=== PATIENT | female | born 1965 | race Caucasian/White ===

== ENCOUNTER → 2016-07-28 | Outpatient (CLI) | payer OTHER | LOC: WI 11:11 | PROVIDERS: ATTEND Physician Assistant | DX: Z12.31 Encounter for screening mammogram for malignant neoplasm of breast (principal) | CPT/HCPCS: 77067; G0202 ==

== ENCOUNTER 2017-10-25 16:15 | Emergency (ER) | payer OTHER ==
[2017-10-25] MEDS ORDERED: NORMAL SALINE 1000 ML 1,000 ML IV ONE (16:32)
[2017-10-25] MEDS ORDERED: DIPHENHYDRAMINE HCL 50 MG/ML VIAL IV ONE (16:32)
[2017-10-25] MEDS ORDERED: PROCHLORPERAZINE EDISYLATE INJ 10 MG/2 ML VIAL IV ONE (16:32)
--- NOTE | 2017-10-25 16:34 | ER Document Report ---
ED Headache - General Chief Complaint: Headache Stated Complaint: HEADACHE Time Seen by Provider: 10/25/17 16:23 Mode of Arrival: Ambulatory Information source: Patient Notes: Patient presents complaining of occipital headache that started 4 days ago. Patient states pain started and then gradually continue to worsen over the past 4 days. Patient denies any fever or head injury. Patient does report photo sensitivity as well as nausea. Patient states she typically gets headaches each month that coincide around her menstrual cycle, and states that this is typically when she does get headaches. Patient states that typically she will get right-sided migraines versus occipital headache pain. Patient denies any personal or family history of aneurysm. TRAVEL OUTSIDE OF THE [place] IN LAST 30 DAYS: No - HPI Patient complains to provider of: "Migraine" Patient reports: Frequent migraines Onset: Other - 4 days Onset was: Gradual Quality of pain: Achy Pain Level: 5 Associated symptoms: Nausea/vomiting, Photophobia. denies: Chills, Confusion, Double/blurred vision, Fever, Neck pain Exacerbated by: Light Similar symptoms previously: Yes Recently seen / treated by doctor: No - Related Data Allergies/Adverse Reactions: No Known Allergies Allergy (Unverified 04/26/11 22:23) Past Medical History - General Information source: Patient - Social History Smoking Status: Never Smoker Chew tobacco use (# tins/day): No Frequency of alcohol use: None Drug Abuse: None Occupation: None Lives with: Family Family History: Reviewed & Not Pertinent Patient has suicidal ideation: No Patient has homicidal ideation: No Neurological Medical History: Reports: Hx Migraine Renal/ Medical History: Denies: Hx Peritoneal Dialysis Psychiatric Medical History: Reports: Hx Anxiety Past Surgical History: Reports: Hx Adenoidectomy - Immunizations Hx Diphtheria, Pertussis, Tetanus Vaccination: Yes Review of Systems - Review of Systems Constitutional: No symptoms reported. denies: Fever EENT: No symptoms reported. denies: Blurred vision Cardiovascular: No symptoms reported Respiratory: No symptoms reported. denies: Cough Gastrointestinal: Nausea. denies: Vomiting Genitourinary: No symptoms reported Female Genitourinary: No symptoms reported Musculoskeletal: No symptoms reported. denies: Back pain, Neck pain Skin: No symptoms reported. denies: Rash Hematologic/Lymphatic: No symptoms reported Neurological/Psychological: Headaches. denies: Confusion, Weakness Physical Exam - Vital signs Vitals: Temp Pulse Resp BP Pulse Ox 97.8 F 82 20 145/86 H 100 10/25/17 16:19 10/25/17 16:19 10/25/17 16:19 10/25/17 16:19 10/25/17 16:19 - General General appearance: Appears well, Alert In distress: None - HEENT Head: Normocephalic, Atraumatic Eyes: Normal Conjunctiva: Normal Extraocular movements intact: Yes Eyelashes: Normal Pupils: PERRL Corrective lenses worn: No Ears: Normal External canal: Normal Tympanic membrane: Normal Sinus: Normal. No: Tenderness Nasal: Clear rhinorrhea Mouth/Lips: Normal Mucous membranes: Normal Pharynx: Normal. No: Erythema, Exudate Neck: Normal, Supple. No: Brudzinski, Lymphadenopathy, Meningismus - Respiratory Respiratory status: No respiratory distress Chest status: Nontender Breath sounds: Normal. No: Rales, Rhonchi, Stridor, Wheezing Chest palpation: Normal - Cardiovascular Rhythm: Regular Heart sounds: S1 appreciated, S2 appreciated Murmur: No - Back Back: Normal, Nontender. No: Vertebra tenderness - Extremities General upper extremity: Normal inspection, Normal ROM General lower extremity: Normal inspection, Normal ROM - Neurological Neuro grossly intact: Yes Cognition: Normal Orientation: AAOx4 Suzi Coma Scale Eye Opening: Spontaneous Friendly Coma Scale Verbal: Oriented Friendly Coma Scale Motor: Obeys Commands Suzi Coma Scale Total: 15 Speech: Normal. No: Dysarthria Cranial nerves: Normal. No: Facial palsy, Gaze palsy, Tongue deviation Cerebellar coordination: Normal, Finger-nose rhombey, Rapid alt. movements, Truncal ataxia Motor strength normal: LUE, RUE, LLE - Psychological Associated symptoms: Tearful - Skin Skin Temperature: Warm Skin Moisture: Dry Skin Color: Normal Course - Re-evaluation Re-evalutation: 10/25/17 17:18 Patient reports only modest improvement of headache pain at this time. Additional medication ordered. 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 The patient is neurologically intact. Given the extremely low risk of these diagnoses further testing and evaluation for these possibilities does not appear to be indicated at this time. The patient has been instructed to return if the symptoms worsen or change in any way. - Vital Signs Vital signs: Temp Pulse Resp BP Pulse Ox 98.2 F 71 20 127/69 H 97 10/25/17 19:43 10/25/17 19:43 10/25/17 16:19 10/25/17 19:43 10/25/17 19:43 Discharge - Discharge Clinical Impression: Headache Qualifiers: Headache type: unspecified Headache chronicity pattern: unspecified pattern Intractability: not intractable Qualified Code(s): R51 - Headache Condition: Stable Disposition: HOME, SELF-CARE Instructions: Intravenous Compazine for Headaches ([facility]), Use of Diphenhydramine , Headache ([facility]), Pain Medication Injection ([facility]), Toradol Injection ([facility]) Additional Instructions: Return immediately for any new or worsening symptoms Followup with your primary care provider, call tomorrow to make a followup appointment Follow-up with a neurologist for further evaluation of your migraine headaches Prescriptions: Butalb/Acetaminophen/Caffeine [Fioricet (50-325-40 mg) Tablet] 1 - 2 tab PO Q4H #20 each Referrals: MICHELET AGUAYO PA-C [Primary Care Provider] - Follow up as needed JAQUELINE BARBER MD [NO LOCAL MD] - Follow up in 3-5 days
[2017-10-25] MEDS ORDERED: KETOROLAC TROMETHAMINE INJ/PF 30 MG/1 ML SDV IV ONE (17:18)
[2017-10-25] MEDS ORDERED: DEXAMETHASONE SOD PHOS INJ 10 MG/1 ML VIAL IV ONE (17:18)
[2017-10-25] MEDS ORDERED: FENTANYL CITRATE INJ/PF 100 MCG/2 ML AMPUL IV ONE (18:14)
[2017-10-25 19:46] VITALS: BP 127/69
== END 2017-10-25 19:48 | disposition home or self-care (01) ==
LOC: ER 16:15
DX: R51 Headache (principal); H53.149 Visual discomfort, unspecified; R11.0 Nausea; J34.89 Other specified disorders of nose and nasal sinuses
CPT/HCPCS: 99284; 96361; 96374; 96375; J1200; J3010; J1885; J0780; J7030; J1100

== ENCOUNTER 2018-03-22 07:13 | Emergency (ER) | payer OTHER ==
[2018-03-22] MEDS ORDERED: DIPHENHYDRAMINE HCL 50 MG/ML VIAL IV ONE (07:35)
[2018-03-22] MEDS ORDERED: NORMAL SALINE 1000 ML 1,000 ML IV ONE (07:36)
[2018-03-22] MEDS ORDERED: PROCHLORPERAZINE EDISYLATE INJ 10 MG/2 ML VIAL IV ONE (07:36)
[2018-03-22] MEDS ORDERED: ONDANSETRON HCL INJ/PF 4 MG/2 ML SDV IV ONE (07:37)
--- NOTE | 2018-03-22 07:44 | ER Document Report ---
ED General - General Chief Complaint: Headache >24 hrs old Stated Complaint: HEADACHE Time Seen by Provider: 03/22/18 07:26 Mode of Arrival: Ambulatory Information source: Patient Notes: Patient presents emergency department with complaints of migraine headache. Patient reports her usual migraine is frontal. This time its in the back of her head occipital. She reports she has had this migraine before in October. She reports that she was having a little bit of pain before she went to bed and woke up in excruciating pain. She took Motrin before she went to bed and at 530 this morning. This did not help her pain. She reports noise makes it feel worse. She reports it is its as if somebody is sitting on the back of her head. Denies trauma. Her is with her and reports patient is acting normal no confusion. Denies fever vomiting diarrhea reports some nausea. TRAVEL OUTSIDE OF THE [place] 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 Lives with: Family Family History: Reviewed & Not Pertinent Patient has suicidal ideation: No Patient has homicidal ideation: No Neurological Medical History: Reports: Hx Migraine Renal/ Medical History: Denies: Hx Peritoneal Dialysis Psychiatric Medical History: Reports: Hx Anxiety Past Surgical History: Reports: Hx Adenoidectomy - Immunizations Hx Diphtheria, Pertussis, Tetanus Vaccination: Yes Review of Systems - Review of Systems Notes: Review HPI for review of systems., All other systems negative Physical Exam - Vital signs Vitals: Temp Pulse Resp BP Pulse Ox 98 F 73 18 140/73 H 99 03/22/18 07:19 03/22/18 07:19 03/22/18 07:19 03/22/18 07:19 03/22/18 07:19 - General General appearance: Alert, Anxious, Other - tearful - HEENT Head: Normocephalic, Other - c/o bilateral tenderness to occipital area Eyes: Normal Conjunctiva: Normal Extraocular movements intact: Yes Eyelashes: Normal Pupils: PERRL Ears: Normal External canal: Normal Tympanic membrane: Normal Nasal: Normal Mouth/Lips: Normal Mucous membranes: Moist Pharynx: Normal Neck: Normal, Supple, Other - CHIN TO CHEST WITHOUT C/O PAIN. No: Lymphadenopathy - Respiratory Respiratory status: No respiratory distress - Cardiovascular Rhythm: Regular Heart sounds: Normal auscultation - Abdominal Inspection: Normal Distension: No distension Tenderness: Nontender - Extremities General upper extremity: Normal ROM, Normal strength General lower extremity: Normal ROM - Neurological Neuro grossly intact: Yes Cognition: Normal Orientation: AAOx4 Suzi Coma Scale Eye Opening: Spontaneous [place] Coma Scale Verbal: Oriented Suzi Coma Scale Motor: Obeys Commands [place] Coma Scale Total: 15 Speech: Normal Cranial nerves: Normal Motor strength normal: LUE, RUE 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 No obvious neuro deficits no trauma. Will treat patient accordingly. Patient mentions that the last time she was here only the third medication helped her. Upon review of chart the third medication seems to be Dilaudid. 03/22/18 07:49 Dictation of this chart was performed using voice recognition software; therefore, there may be some unintended grammatical errors. 03/22/18 08:39 patient is feeling better pain 2-3/5, was 5/5 when she arrived, plan on discharge after fluids completed with fiorcet script. Pt instructed on importance of fu with pcp for neuro consult. - Vital Signs Vital signs: Temp Pulse Resp BP Pulse Ox 97.7 F 71 16 131/71 H 99 03/22/18 08:59 03/22/18 08:59 03/22/18 08:59 03/22/18 08:59 03/22/18 08:59 Discharge - Discharge Clinical Impression: Migraine Qualifiers: Migraine type: unspecified Condition: Stable Disposition: HOME, SELF-CARE Instructions: Intravenous (IV) Fluids ([facility]), Migraine Headache ([facility]) Additional Instructions: *You have been evaluated for a migraine headache *Take medication as prescribed *Follow up with your primary care provider within 3 days for referral to neurologist *Return to ED for worsening condition, changes, needs, concerns Monitor your blood pressure. Your blood pressure was elevated today. This may be because you were anxious, in pain or because you need medication. It is important to follow up with your primary care provider for full evaluation. Prescriptions: Butalb/Acetaminophen/Caffeine [Fioricet (50-325-40 mg) Tablet] 1 tab PO Q4HP PRN #20 tab PRN Reason: Forms: Elevated Blood Pressure Referrals: MICHELET AGUAYO PA-C [Primary Care Provider] - Follow up in 3-5 days
[2018-03-22] MEDS ORDERED: BUTALB/ACETAMINOPHEN/CAFFEINE 1 TAB EACH PO ONE (08:41)
[2018-03-22 09:04] VITALS: BP 131/71
== END 2018-03-22 09:04 | disposition home or self-care (01) ==
LOC: ER 07:13
DX: G43.909 Migraine, unspecified, not intractable, without status migrainosus (principal); R11.0 Nausea
CPT/HCPCS: 99283; 96361; 96374; 96375; J3490; J1200; J0780; J2405; J7030

== ENCOUNTER 2019-01-24 08:45 | Day surgery (SDC) | payer OTHER ==
[~2019-01-24 08:45] MED LIST: PROPOFOL INJ 200 MG/20 ML VIAL IV ONE
[2019-01-24 11:06] VITALS: BP 125/75
--- NOTE | 2019-01-24 12:51 | Operative Report ---
Operative Report DATE OF SURGERY: 01/24/19 Operative Report: The risks, benefits and alternatives of the procedure including the risk of bleeding, perforation requiring surgery have been explained to the patient in detail and informed consent has been obtained. The patient is taken back to the endoscopy suite and placed in the left, lateral decubital position. Timeout was called. Propofol medication is administered. Rectal examination is done which did not reveal any masses, tears or fissures. An Olympus videoscope was introduced into the patient's rectum. Scope was then carefully advanced all the way to the cecum. Cecum was identified by the usual anatomical landmarks including the ileocecal valve as well as the appendiceal office. Photodocumentation is obtained. Scope was then sequentially pulled back via the various segments of the colon including the ascending colon, hepatic flexure, transverse colon, splenic flexure, descending colon and finally into the rectosigmoid portions of the colon. Retroflexion maneuver is performed. PREOPERATIVE DIAGNOSIS: Colorectal cancer screening POSTOPERATIVE DIAGNOSIS: Normal screening colonoscopy. 10-year surveillance colonoscopy OPERATION: Diagnostic colonoscopy SURGEON: MIRTHA MORALES ANESTHESIA: LMAC TISSUE REMOVED OR ALTERED: None. COMPLICATIONS: None. ESTIMATED BLOOD LOSS: None. INTRAOPERATIVE FINDINGS: As noted above. PROCEDURE: Patient tolerated the procedure well. No immediate postprocedure complications are noted. Patient is discharged in good condition. Discharge date 01/24/2019. Discharge diet: Regular. Discharge activity: Regular. 2 to 3-week follow-up to discuss findings. Patient is instructed to call the office or proceed to the emergency room should there be any further questions. 10-year surveillance colonoscopy.
== END 2019-01-24 11:07 | disposition home or self-care (01) ==
LOC: END 08:45
PROVIDERS: ATTEND Internal Medicine Gastroenterology
DX: Z12.11 Encounter for screening for malignant neoplasm of colon (principal)
CPT/HCPCS: 45378; 00812; J2704; 812